=== PATIENT | male | born 1935 | race Hispanic/Latino ===

== ENCOUNTER 2019-02-13 07:58 | Day surgery (SDC) | payer MEDICARE ==
[~2019-02-13] VITALS: Ht 152.4 cm; Wt 79.4 kg
[~2019-02-13 07:58] MED LIST: ALLO100T PO; ASCO500C18 PO; CARB30DR OU; CHOL500050 PO; CYAN-35 PO; ENZA40CA PO; FLUTICASONE NASAL; IRON PO; LINA5TAB PO; LISI40TA4 PO; MECL-111 PO; MONT10TA24 PO; PIOG30TA70 PO; PRAS25CA9 PO; SILVER SULFADIAZINE TP; SODIUM CHLORIDE 0.9% 1000ML 1,000 ML IV ONE; TYLENOL PO
[2019-02-13 11:02] VITALS: BP 181/57
[2019-02-13 12:06] VITALS: BP 116/46
[2019-02-13 12:12] VITALS: BP 107/53
[2019-02-13 12:26] VITALS: BP 127/58
[2019-02-13 12:28] VITALS: BP 122/65
== END 2019-02-13 12:30 | disposition home or self-care (01) ==
LOC: DAH 07:58 → ENDO 07:58
PROVIDERS: ATTEND Internal Medicine
DX: K29.50 Unspecified chronic gastritis without bleeding (principal); K25.9 Gastric ulcer, unspecified as acute or chronic, without hemorrhage or perforation; K22.8 Other specified diseases of esophagus; K31.89 Other diseases of stomach and duodenum; D50.9 Iron deficiency anemia, unspecified; K21.9 Gastro-esophageal reflux disease without esophagitis; I10 Essential (primary) hypertension; E11.9 Type 2 diabetes mellitus without complications; F41.9 Anxiety disorder, unspecified; F32.9 Major depressive disorder, single episode, unspecified; Z98.49 Cataract extraction status, unspecified eye; Z79.899 Other long term (current) drug therapy; Z98.890 Other specified postprocedural states; Z85.46 Personal history of malignant neoplasm of prostate
CPT/HCPCS: 43239; 82948 ×2; 88305; 88342; A4606; J7030

== ENCOUNTER 2019-05-01 12:54 | Emergency (ER) | payer MEDICARE ==
[~2019-05-01 12:54] MED LIST changes: -SODIUM CHLORIDE 0.9% 1000ML 1,000 ML IV ONE
[2019-05-01] MEDS ORDERED: ACETAMINOPHEN-CODEINE 300/30MG TAB ONE (13:35)
== END 2019-05-01 15:32 | disposition home or self-care (01) ==
LOC: EDH 12:54
DX: S00.83XA Contusion of other part of head, initial encounter (principal); S50.01XA Contusion of right elbow, initial encounter; S80.01XA Contusion of right knee, initial encounter; I10 Essential (primary) hypertension; E11.9 Type 2 diabetes mellitus without complications; Z87.891 Personal history of nicotine dependence; W18.39XA Other fall on same level, initial encounter; Y93.01 Activity, walking, marching and hiking; Y92.89 Other specified places as the place of occurrence of the external cause; Y99.8 Other external cause status
CPT/HCPCS: 70450; 72125; 73080; 73562

== ENCOUNTER → 2019-09-26 | Outpatient (CLI) | payer MEDICARE ==
[~2019-09-26] MED LIST changes: -MECL-111 PO; +MECL-160 PO; -MONT10TA24 PO; +MONT10TA26 PO
== END | disposition home or self-care (01) ==
LOC: RAH 12:28
PROVIDERS: ATTEND Family Medicine
DX: I63.9 Cerebral infarction, unspecified (principal); R55 Syncope and collapse
CPT/HCPCS: 70544